=== PATIENT | male | born 1970 | race African-American/Black ===

== ENCOUNTER 2022-09-21 14:35 | Outpatient (CLI) | payer OTHER | END 2022-09-21 14:36 | disposition home or self-care (01) | LOC: BICRAD 14:35 | PROVIDERS: ATTEND Preventive Medicine Occupational Medicine | DX: Z02.71 Encounter for disability determination (principal); M25.571 Pain in right ankle and joints of right foot; M54.50 Low back pain, unspecified; M47.816 Spondylosis without myelopathy or radiculopathy, lumbar region; M19.071 Primary osteoarthritis, right ankle and foot; M21.071 Valgus deformity, not elsewhere classified, right ankle; M67.873 Other specified disorders of tendon, right ankle and foot | CPT/HCPCS: 72100 ==